=== PATIENT | male | born 1950 | race Caucasian/White ===

== ENCOUNTER 2019-03-21 19:11 | Emergency (ER) | payer MEDICARE ==
[~2019-03-21] VITALS: Ht 188 cm; Wt 145.1 kg
[2019-03-21 19:15] VITALS: BP_SYST 161
--- NOTE | 2019-03-21 19:30 | NUR ---
Patient to ER bed 2 to gown for evaluation. Side rails up.
--- NOTE | 2019-03-21 19:37 | NUR ---
ER Dr. Landeros at bedside examining patient.
--- NOTE | 2019-03-21 19:59 | NUR ---
Pt BIBA to ED C/O right forearm and right wrist pain status-post tripping on a parking wedge and falling flat on his face when walking in a poorly light parking lot at ~18:40 today. The right wrist pain was initially rated 5/10 intensity but is now rated 4/10 intensity. He states his right forearm feels like electric shocks so he called 911 with his left hand. The patient states epistaxis due to falling on his face No other complaints and or injuries noted VSS no s/s of acute distress Resting on [email or web address] rails up
[2019-03-21] MEDS ORDERED: KETOROLAC TROMETHAMINE 30 MG VIAL IM ONE (20:00)
[2019-03-21] MEDS ORDERED: OXYMETAZOLINE HCL 0.05% NASAL SPRAY NS ONE (20:00)
[2019-03-21] MEDS ORDERED: BACITRACIN 1 GM OINT TP ONE (20:00)
--- NOTE | 2019-03-21 20:01 | NUR ---
Portable X Ray bedside, well tolerated
--- NOTE | 2019-03-21 20:24 | NUR ---
Pt taken to Radiology in stable condition
[2019-03-21 21:55] VITALS: BP_SYST 162
--- NOTE | 2019-03-21 21:55 | NUR ---
Patient given written and verbal discharge instructions and verbalizes understanding. ER MD discussed with patient the results and treatment provided. Patient in stable condition. ID arm band removed. Rx of Naprosyn given. Patient educated on pain management and to follow up with PMD. Pain Scale 0/10 Opportunity for questions provided and answered. Medication side effect fact sheet provided.
== END 2019-03-21 21:55 | disposition home or self-care (01) ==
LOC: SED 19:11
DX: S02.2XXA Fracture of nasal bones, initial encounter for closed fracture (principal); S62.306A Unspecified fracture of fifth metacarpal bone, right hand, initial encounter for closed fracture; W18.09XA Striking against other object with subsequent fall, initial encounter; I10 Essential (primary) hypertension; E78.00 Pure hypercholesterolemia, unspecified; Z88.8 Allergy status to other drugs, medicaments and biological substances; Z88.6 Allergy status to analgesic agent; Y93.89 Activity, other specified; Y92.481 Parking lot as the place of occurrence of the external cause; Y99.8 Other external cause status
CPT/HCPCS: 29125; 70160; 73070; 73110; 96372; 99283; J1885